=== PATIENT | female | born 1960 | race Two or more races ===

== ENCOUNTER 2021-03-28 15:29 | Emergency (ER) | payer OTHER ==
[~2021-03-28] VITALS: Ht 160 cm; Wt 127.0 kg
[2021-03-28] MEDS ORDERED: LOSARTAN POTAS100 MG (15:49)
[2021-03-28] MEDS ORDERED: METFORMIN HCL500 M3 (15:50)
[2021-05-22] MEDS ORDERED: MONTELUKAST SODI4 M1 PO (11:21)
[2021-05-22] MEDS ORDERED: DIETHYLPROPION75 MG PO (11:22)
== END 2021-03-28 21:20 | disposition home or self-care (01) ==
LOC: ER 15:29
DX: N93.9 Abnormal uterine and vaginal bleeding, unspecified (principal)

== ENCOUNTER 2021-05-26 11:00 | Day surgery (SDC) | payer OTHER ==
[~2021-05-26 11:00] MED LIST: DIETHYLPROPION75 MG PO; LOSARTAN POTAS100 MG; METFORMIN HCL500 M3; MONTELUKAST SODI4 M1 PO
== END 2021-05-26 18:10 | disposition home or self-care (01) ==
LOC: CIR.AMB 11:00
PROVIDERS: ATTEND Obstetrics & Gynecology
DX: N95.0 Postmenopausal bleeding (principal); Z20.822 Contact with and (suspected) exposure to COVID-19